=== PATIENT | female | born 1970 | race Caucasian/White ===

== ENCOUNTER → 2016-08-18 | Outpatient (CLI) | payer MEDICARE, BC | END | disposition home or self-care (01) | LOC: CDC 13:23 | DX: Z01.810 Encounter for preprocedural cardiovascular examination (principal); M51.36 Other intervertebral disc degeneration, lumbar region; M43.17 Spondylolisthesis, lumbosacral region; M54.16 Radiculopathy, lumbar region | CPT/HCPCS: 93000 ==

== ENCOUNTER 2016-08-26 05:48 | Inpatient (IN) | payer OTHER, BC ==
[~2016-08-26] VITALS: Ht 172.7 cm; Wt 90.9 kg
[~2016-08-26 05:48] MED LIST: AMPHETAMINE SAL30 MG PO; CHANTIX1 MG PO; DETROL LA4 MG PO; ELAVIL25 MG PO; FISH OIL300 MG PO; LEVO-T112 MCG PO; LIPITOR40 MG PO; LO-DOSE ASPIRIN81 M2 PO; LODINE400 MG PO; LORTAB 10-3251 EACH PO; MULTI-DAY VITA1 EACH PO; NEURONTIN600 MG PO; NEXIUM40 MG PO; ZANAFLEX4 MG PO
[2016-08-26 06:12] VITALS: BP 124/76
[2016-08-26 18:32] VITALS: BP 108/60
[2016-08-26 20:06] VITALS: BP 106/54
[2016-08-26 23:26] VITALS: BP 95/50
[2016-08-27] VITALS (7 sets, daily range): BP systolic 102–115; BP diastolic 50–67
[2016-08-28 04:00] VITALS: BP 116/75
[2016-08-28 07:42] VITALS: BP 128/78
[2016-08-28 11:14] VITALS: BP 112/70
[2016-08-28 15:17] VITALS: BP 106/67
[2016-08-28 23:44] VITALS: BP 93/53
[2016-08-29 07:29] VITALS: BP 138/99
[2016-08-29 14:08] VITALS: BP 125/66
== END 2016-08-29 16:48 | disposition home or self-care (01) | DRG 455 ==
LOC: 3EAST 05:48 → 2SOUTH 05:48 → 3EAST 18:13
DX: M43.16 Spondylolisthesis, lumbar region (principal); M48.06 Spinal stenosis, lumbar region; M51.16 Intervertebral disc disorders with radiculopathy, lumbar region; M51.37 Other intervertebral disc degeneration, lumbosacral region; M47.26 Other spondylosis with radiculopathy, lumbar region; Z91.040 Latex allergy status; M51.36 Other intervertebral disc degeneration, lumbar region; F17.211 Nicotine dependence, cigarettes, in remission; K21.9 Gastro-esophageal reflux disease without esophagitis; G43.909 Migraine, unspecified, not intractable, without status migrainosus; E03.9 Hypothyroidism, unspecified; E78.5 Hyperlipidemia, unspecified; E78.00 Pure hypercholesterolemia, unspecified; K64.8 Other hemorrhoids; R90.82 White matter disease, unspecified
CPT/HCPCS: 72100; 76000; C1713; J0330; J0690; J1100; J1170; J2250; J2405; J2930; J3010; J3370; J3480; J7120; S0020